=== PATIENT | male | born 1950 | race Two or more races ===

== ENCOUNTER 2017-02-07 13:49 | Emergency (ER) | payer OTHER | END 2017-02-07 14:34 | disposition other institution (70) | LOC: ED 13:49 | DX: Z02.89 Encounter for other administrative examinations (principal) ==

== ENCOUNTER 2017-02-07 13:49 | Emergency (ER) | payer MEDICARE ==
[2017-02-07 14:34] VITALS: BP 153/72
== END 2017-02-07 14:34 | disposition other institution (70) ==
LOC: ED 13:49
DX: E11.649 Type 2 diabetes mellitus with hypoglycemia without coma (principal); E78.00 Pure hypercholesterolemia, unspecified
CPT/HCPCS: 82962